=== PATIENT | female | born 1990 | race African-American/Black ===

== ENCOUNTER 2018-06-24 18:35 | Emergency (ER) | payer OTHER ==
[~2018-06-24] VITALS: Ht 154.9 cm; Wt 77.1 kg
[2018-06-24 18:48] LABS: URINE BLOOD 1+ (Negative); URINE CLARITY CLEAR; URINE COLOR YELLOW; URINE GLUCOSE-RANDOM* NEGATIVE (Negative); URINE KETONES NEGATIVE (Negative); URINE LEUKOCYTES-REFLEX NEGATIVE (Negative); URINE NITRITE-REFLEX NEGATIVE (Negative); URINE PROTEIN (DIPSTICK) TRACE (Negative); URINE SPECIFIC GRAVITY >= 1.030 (1.005-1.035); URINE UROBILINOGEN 0.2 E.U./dl (0.2-1.0)
[2018-06-24 18:57] LABS: ICTOTEST (BILI CONFIRMATORY) Negative (Negative); URINE BILIRUBIN NEGATIVE (Negative)
[2018-06-24 19:04] LABS: CASTS None Seen /LPF (None Seen); CRYSTALS None Seen /LPF (None Seen); SQUAMOUS 4-10 Moderate /LPF (0-3)
[2018-06-24 19:05] LABS: URINE RBC 3-10 Few /HPF (0-2); URINE WBC-REFLEX 0-5 Rare /HPF (0-5)
[2018-06-24 19:29] LABS: ABSOLUTE NEUTROPHILS 5.4 thou/uL (1.4-8.2); BASOPHILS 0.7 % (0.0-2.0); EOSINOPHILS 2.7 % (0.0-3.0); HEMATOCRIT 41.8 % (37.0-47.0); MCH 27.5 pg (26.0-34.0); MCHC 33.5 g/dL (28.0-37.0); MCV 82.1 fL (80.0-100.0); PLATELET COUNT 418 thou/uL (150-400); POLYS 63.6 % (36.0-66.0); RBC 5.09 mil/uL (4.20-5.00); RDW 13.3 % (10.5-14.5); WBC 8.4 thou/uL (4.0-11.0)
[2018-06-24 19:38] LABS: CALCIUM 9.7 mg/dL (8.5-10.1); CREATININE 0.9 mg/dL (0.6-1.0); POTASSIUM 3.7 mmol/L (3.5-5.1)
[2018-06-24] MEDS ORDERED: DIFLUCAN200 MG PO (20:38)
[2018-06-24 20:50] VITALS: BP 109/52
== END 2018-06-24 20:52 | disposition home or self-care (01) ==
LOC: ER 18:35
PROVIDERS: Nurse Practitioner Family
DX: N72 Inflammatory disease of cervix uteri (principal); N76.0 Acute vaginitis; B37.9 Candidiasis, unspecified